=== PATIENT | female | born 1955 | race Caucasian/White ===

== ENCOUNTER 2020-07-31 06:42 | Day surgery (SDC) | payer BC ==
[2020-07-31] MEDS: Lactated Ringers 1,000 ML IV SCH ×3 (07:10→22:20)
[2020-07-31] MEDS ORDERED: fentaNYL 100 MCG/2 ML SDV ONE (07:11)
[2020-07-31] MEDS ORDERED: Midazolam 1 MG/ML 2 ML SDV ONE (07:11)
[2020-07-31] MEDS ORDERED: Propofol 200 MG/20 ML SDV ONE (07:11)
[2020-07-31] MEDS ORDERED: Rocuronium Bromide 50 MG/5 ML Syringe ONE (07:22)
[2020-07-31] MEDS ORDERED: Succinylcholine/Sod PF 100 MG/5 ML SYRINGE IV ONE (07:22)
--- NOTE | 2020-07-31 07:29 | PCM.PREANE ---
Preanesthetic Assessment - Anesthesia/Transfusion/Family Hx Anesthesia History: Prior Anesthesia Without Reaction Other Type of Anesthesia Reaction Comment: Denies any known problem in past Family History of Anesthesia Reaction: No Transfusion History: No Prior Transfusion(s) Intubation History: Unknown - Review of Systems General: No Symptoms Pulmonary: No Symptoms Cardiovascular: No Symptoms Gastrointestinal: No Symptoms Neurological: No Symptoms Other: Reports: None - Physical Assessment Vital Signs: Last Vital Signs Temp 36.0 C L 07/31/20 06:54 Pulse 93 07/31/20 06:54 Resp 15 07/31/20 06:54 BP 109/63 07/31/20 06:54 Pulse Ox 93 L 07/31/20 06:54 Height: 5 ft 3 in Weight: 62.596 kg ASA Class: 1 Mental Status: Alert & Oriented x3 Airway Class: Mallampati = 1 Dentition: Reports: Normal Dentition Thyro-Mental Finger Breadths: 3 Mouth Opening Finger Breadths: 3 ROM/Head Extension: Full Lungs: Clear to Auscultation, Normal Respiratory Effort Cardiovascular: Regular Rate, Regular Rhythm - Allergies Allergies/Adverse Reactions: Allergies Allergy/AdvReac Type Severity Reaction Status Date / Time venom-honey bee Allergy Anaphylactic Verified 04/06/15 14:50 [bee venom (honey bee)] Shock - Blood Blood Available: No - Anesthesia Plan Pre-Op Medication Ordered: None - Acknowledgements Anesthesia Type Planned: General Anesthesia Pt an Appropriate Candidate for the Planned Anesthesia: Yes Alternatives and Risks of Anesthesia Discussed w Pt/Guardian: Yes Pt/Guardian Understands and Agrees with Anesthesia Plan: Yes PreAnesthesia Questionnaire HEENT History: Reports: Other (See Below) Other HEENT History: wears glasses Cardiovascular History: Reports: None Respiratory History: Reports: None Gastrointestinal History: Reports: None Genitourinary History: Reports: None 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: , Other (See Below) Other OB/BYN History: cystocele with vault prolapse Musculoskeletal History: Reports: Fracture Other Musculoskeletal History: hx fx ankle Neurological History: Reports: None Psychiatric History: Reports: None Endocrine/Metabolic History: Reports: None Hematologic History: Reports: None Immunologic History: Reports: None Oncologic (Cancer) History: Reports: None Dermatologic History: Reports: None - Past Surgical History Head Surgeries/Procedures: Reports: None HEENT Surgical History: Reports: None Cardiovascular Surgical History: Reports: None Respiratory Surgical History: Reports: None GI Surgical History: Reports: Colonoscopy Female Surgical History: Reports: Hysterectomy Endocrine Surgical History: Reports: None Neurological Surgical History: Reports: C-Spine Other Neurological Surgeries/Procedures: anterior cervical diskectomy Musculoskeletal Surgical History: Reports: None Oncologic Surgical History: Reports: None Dermatological Surgical History: Reports: None - SUBSTANCE USE Tobacco Use Status *Q: Never Tobacco User - HOME MEDS Home Medications: Home Meds Ascorbic Acid [Vitamin C] 500 mg PO DAILY 04/05/15 [History] Calcium Carbonate/Vitamin D3 [Calcium 600 + D Tablet] 1 tab PO DAILY 04/05/15 [History] EPINEPHrine [Epipen] 1 injection SUBCUT ASDIRECTED PRN 04/05/15 [History] Multivitamin [One-A-Day Essential] 1 tab PO DAILY 04/05/15 [History] Rutin/Hesp/Bioflav/C/Ocylve095 [Bioflex] 1 tab PO DAILY 04/05/15 [History] S-Adenosylmethionine Sul Tosyl [Remy-E] 1 tab PO DAILY 04/05/15 [History] Calcium Carb, Citrate/Vit D3 [Citracal + D ER] 1 tab PO DAILY 07/26/20 [History] estradioL [Divigel] 1 applic TOP DAILY 07/26/20 [History] - CURRENT (IN HOUSE) MEDS Current Meds: Current Medications Lactated Ringer's (Ringers, Lactated) 1,000 mls @ 100 mls/hr IV ASDIRECTED CLIFF Last Admin: 07/31/20 07:10 Dose: 100 mls/hr Documented by: Discontinued Medications Fentanyl (Sublimaze) Confirm Administered Dose 100 mcg .ROUTE .STK-MED ONE Stop: 07/31/20 07:12 Lidocaine HCl (Xylocaine-Mpf 1%) Confirm Administered Dose 5 ml .ROUTE .STK-MED ONE Stop: 07/31/20 07:23 Midazolam HCl (Versed 1 Mg/Ml) Confirm Administered Dose 2 mg .ROUTE .STK-MED ONE Stop: 07/31/20 07:12 Propofol (Diprivan 20 Ml) Confirm Administered Dose 200 mg .ROUTE .STK-MED ONE Stop: 07/31/20 07:12 Rocuronium [place] (Rocuronium [place]) Confirm Administered Dose 50 mg .ROUTE .STK-MED ONE Stop: 07/31/20 07:23
[2020-07-31] MEDS ORDERED: Fluorescein 5 ML Vial ONE (07:34)
[2020-07-31] MEDS ORDERED: Bupivacaine 0.25% 10 ML SDV ONE (07:35)
[2020-07-31] MEDS ORDERED: Lidocaine 1% with EPINEPHrine 1:100,000 20 ML MDV ONE (07:35)
[2020-07-31] MEDS ORDERED: Octyl 2-Cyanoacrylate 1 Tube ONE (07:35)
[2020-07-31 07:50] LABS: BLOOD UREA NITROGEN,BUN 15 mg/dL (7.0-18.0); CARBON DIOXIDE,CO2 28.9 mmol/L (21.0-32.0); CHLORIDE,CL 106 mmol/L (98-107); GLUCOSE RANDOM 104 mg/dL (74-106); POTASSIUM,K 3.9 mmol/L (3.5-5.1); SODIUM,NA 142 mmol/L (136-145)
[2020-07-31] MEDS ORDERED: ceFAZolin 1 GM in Premix Bag 1 BAG IV ONE (07:52)
[2020-07-31] MEDS ORDERED: Ondansetron 4 MG/2 ML SDV ONE (08:31)
[2020-07-31] MEDS ORDERED: Dexamethasone 4 MG/ML 5 ML MDV ONE (08:31)
[2020-07-31] MEDS ORDERED: EPINEPHrine 1:10,000 1 MG/10 ML Syringe IVPUSH PRN (08:52)
[2020-07-31] MEDS ORDERED: fentaNYL 100 MCG/2 ML SDV IVPUSH PRN (08:52)
[2020-07-31] MEDS ORDERED: Naloxone 0.4 MG/ML Syringe IVPUSH PRN (08:52)
[2020-07-31] MEDS ORDERED: Albuterol 0.083% 2.5 MG/3 ML Neb Soln NEB PRN (08:52)
[2020-07-31] MEDS ORDERED: 50% Dextrose in Water 50 ML Syringe IVPUSH PRN (08:52)
[2020-07-31] MEDS ORDERED: Atropine 0.1 MG/ML 10 ML Syringe IVPUSH PRN ×2 (08:52)
[2020-07-31] MEDS ORDERED: HYDROmorphone 2 MG/ML Syringe IVPUSH PRN (08:52)
[2020-07-31] MEDS ORDERED: Ondansetron 4 MG/2 ML SDV IVPUSH PRN ×2 (08:53→10:37)
[2020-07-31] MEDS ORDERED: Glycopyrrolate 0.2 MG/ML SDV ONE (09:16)
[2020-07-31] MEDS ORDERED: Furosemide 40 MG/4 ML VIAL ONE (09:24)
--- NOTE | 2020-07-31 10:36 | PCM.OPNOTE ---
- General Post-Op/Procedure Note Date of Surgery/Procedure: 07/31/20 Operative Procedure(s): laparoscopic lysis of adhesions, bilateral salpingoophorectomy, pelvic washings, vaginal vault suspension, anterior and posterior colporrhaphy, perineorrhaphy, and cystoscopy Findings: 4th degree cystocele, vault prolapse, second degree rectocele. Adhesions of the bowel epiploica to the vaginal cuff. Normal appearing tubes and ovaries, normal cystometry with good flow from bilateral ureteral orifices, no trauma to the bladder mucosa. Pre Op Diagnosis: vaginal prolapse after hysterectomy, cystocele, family histoiry of ovarian cancer. Post-Op Diagnosis: Same Anesthesia Technique: General ET Tube Primary Surgeon: Alia Malik Secondary Surgeon: Hollie Chavez Anesthesia Provider: Mariajose Gonzales Die Finisher: Clay Pang Pathology: pelvic washings, bilateral tubes and ovaries, vaginal mucosa. Fluid Replacement, Intraop: 1,600 Output, Urine Amount: 400 EBL in mLs: 50 Complications: None Known Condition: Good Free Text/Narrative:: Intake & Output 07/30/20 07/31/20 07/31/20 22:59 06:59 14:59 Output Total 100 Balance -100
[2020-07-31] MEDS ORDERED: Promethazine 25 MG/ML SDV IM PRN (10:37)
[2020-07-31] MEDS ORDERED: Acetaminophen/oxyCODONE 325-5 MG Tab PO PRN (10:37)
[2020-07-31] MEDS ORDERED: Ketorolac 30 MG/ML SDV IVPUSH ONE (10:37)
[2020-07-31] MEDS ORDERED: Morphine 4 MG/ML Syringe IVPUSH PRN (10:37)
--- NOTE | 2020-07-31 12:15 | OR ---
SURGEON: Alia Malik M.D. DATE OF PROCEDURE: 07/31/2020 PREOPERATIVE DIAGNOSES: Vaginal vault prolapse after hysterectomy, cystocele, rectocele, and family history of ovarian cancer. POSTOPERATIVE DIAGNOSES: Vaginal vault prolapse after hysterectomy, cystocele, rectocele, and family history of ovarian cancer and pelvic adhesions. PROCEDURES: Laparoscopic lysis of adhesions, bilateral salpingo-oophorectomy, vaginal vault suspension to the uterosacral ligaments, anterior-posterior colporrhaphy, perineorrhaphy, and cystoscopy. PRIMARY SURGEON: Alia Malik MD RIVET STICKER: Hollie Chavez MD ANESTHESIA: General endotracheal. FLUIDS: 1600 mL crystalloid. ESTIMATED BLOOD LOSS: 50 mL. URINE OUTPUT: 400 mL. FINDINGS: Bowel epiploica adherent to the vaginal apex found laparoscopically. Bilateral tubes and ovaries appeared normal with a small cyst on the right ovary. The pelvis otherwise appeared normal. The bladder was extremely redundant. Upon vaginal examination, the vaginal vault was completely detached from the uterosacral ligaments. There was a third-degree cystocele, which descended beyond the introitus due to the vault prolapse, second-degree rectocele. On cystoscopy, there was copious flow of bright green urine after giving IV fluorescein and Lasix and there was no evidence of any trauma to the bladder mucosa prior to the vault suspension and following the vault suspension. COMPLICATIONS: None known. DISPOSITION: Stable to Recovery. BRIEF HISTORY: This is a 65-year-old female. She presents having had a prior hysterectomy and anterior colporrhaphy with difficulty emptying bladder, feeling a bulge at her vagina, and pelvic pressure. Examination revealed a [id number] degree cystocele, vault prolapse, and second-degree rectocele and additionally, they were unable to remove her ovaries at the time of prior vaginal hysterectomy and her mother has a history of ovarian cancer at the age of 70 and she desires bilateral salpingo-oophorectomy. She is therefore consented for a laparoscopic bilateral salpingo-oophorectomy with pelvic washings and vaginal vault suspension to the uterosacral ligaments with anterior-posterior colporrhaphy, perineorrhaphy, and cystoscopy with risks discussed including bleeding; infection; injury to bowel, bladder, blood vessels, ureters, or other organs; risk of thromboembolic event; risk of anesthesia; risk of recurrence of approximately 30%; or risk of dyspareunia or sexual dysfunction were also discussed. Understanding all these risks, she does desire to proceed. DESCRIPTION OF PROCEDURE: With the patient in dorsal lithotomy position, under adequate general endotracheal anesthesia, the perineum was prepped with Betadine. The abdomen was prepped with chlorhexidine and draped in usual fashion for a laparoscopically assisted vaginal surgery. The time-out was held. The Kaye had been placed. SCDs were in place. She had received 2 g of Ancef IV. A sponge stick was placed into the vagina to manipulate the vaginal apex from below while performing the laparoscopic surgery. Attention was then turned above after ditto machine operator's gloves were changed, and 3 mL of 0.25% Marcaine was injected inferior to the umbilicus. A vertical 5 mm incision was made with a scalpel. The anterior abdominal wall was elevated. Veress needle was inserted. Opening pressure was 3 mmHg. CO2 was insufflated to develop an adequate pneumoperitoneum. A 5 mm port was placed at the umbilical site. The laparoscope was placed into the abdominal cavity. There was no evidence of any trauma from the port placement site. Two additional ports were placed under direct visualization, 2 cm medial and cephalad from the anterior superior iliac spine on the right and the left. The patient was placed in Trendelenburg position, and the ovaries could not be identified due to dense adhesions along the vaginal cuff. This was carefully inspected, and it was determined to be bowel epiploica, which could safely be lysed, and using the LigaSure, the bowel epiploica was released from the vaginal cuff. With this, I was then able to easily identify the ureters bilaterally, which were well below the field of dissection. The left tube was grasped, elevated as well as the ovary and the infundibulopelvic ligament was doubly cauterized, cut with the LigaSure, proceeding proximally along the tube to the position near the vaginal apex, and was transected. This was repeated on the opposite side. They were placed in the anterior cul-de-sac. Prior to proceeding with the bilateral salpingo- oophorectomy, the pelvis was copiously irrigated with normal saline, and this was collected for washings. This being completed, Dr. Chavez continued to proceed under laparoscopic guidance while I proceeded vaginally. A weighted speculum was placed posteriorly. The vaginal apices were marked with 2-0 Vicryl bilaterally. The anterior vaginal wall was grasped with an Allis clamp approximately 1 cm cephalad from the urethral meatus. Hydrodissection was performed. The cystocele was identified to the upper apex, and the vaginal mucosa was incised. The muscularis layer was from the overlying vaginal mucosa. The muscularis layer was then reapproximated in the midline using multiple interrupted sutures of 2-0 Vicryl, and this anterior cystocele did not reach the enterocele at the apex, and therefore, the vaginal incision was slightly trimmed and closed with a running locked suture of 0 Polysorb. A triangular incision was then made in the perineum using a scalpel. The skin was removed using Metzenbaum scissors. Hydrodissection was performed across the posterior vagina, and the midline incision was made in the vaginal mucosa. Muscularis layer was from the underlying vaginal mucosa. There was a clear delineation at the upper level of the muscularis layer that had from the vaginal support, and just above this, I was able to enter the peritoneal cavity under direct visualization from the laparoscope. This being completed, I was then able to remove the tubes and ovaries vaginally. A sponge was placed to avoid loss of the pneumoperitoneum, and this was removed at the end of the case as noted. The bowel was then packed. The apices of the vaginal cuff were grasped with Conrado clamps bilaterally. The uterosacral ligaments were palpated. Three sutures of 2-0 Ethibond were placed into the uterosacral ligaments on each side, and a single tie was placed. Following placement of the sutures, the Kaye bulb was reduced, and the Kaye catheter was removed. Cystoscopy was performed after IV fluorescein had been given as well as Lasix, and there was copious flow of green urine from bilateral ureteral orifices with and without tension on the uterosacral ligaments on the ipsilateral side. There was also no evidence of any trauma to the bladder mucosa. This being completed, the clearly delineated upper portion of the vaginal muscularis was attached to one arm of each of the 6 sutures and anteriorly, the upper cuff could be identified dissecting beneath the posterior vaginal mucosa, and there was good tissue there, which allowed the vaginal apex to be reattached to the uterosacral ligaments using the opposite arm. These 6 sutures were then tied and trimmed. Due to the placement of the anterior arm of each of these, I did repeat cystoscopy to confirm that there was no trauma and no suture placement within the bladder mucosa, and the cystoscopy was also normal. The bladder had been removed and was again replaced. The muscularis layer of the posterior wall of the vagina was then reapproximated in the midline using a multiple mattress sutures of 2-0 Vicryl. The vaginal mucosa was not trimmed as the primary defect was a transverse defect, and the vaginal mucosa was reapproximated using running locked suture of 0 Vicryl, carrying down to the perineum where the triangular incision of the perineum was reapproximated in the midline to increase the length of the perineum. A 3-0 Monocryl was then utilized in a running subcuticular fashion to reapproximate the skin of the perineum. At this point, we noted that sponge count was off by one. Laparoscopy was performed, and it was noted that the sponge that had been used to prevent loss of the pneumoperitoneum was in the peritoneal cavity and was removed through one of the laparoscopic ports without any difficulty. The pelvis was hemostatic. Laparoscopic ports were removed, and the skin was closed with subcuticular suture of 3-0 Monocryl. The vagina was packed with vaginal packing instilled with water-based lubricant. Final sponge, needle, and instrument counts were reported as correct. There were no known complications. The patient was transferred to Recovery in good condition. [employer] /[id number]
--- NOTE | 2020-07-31 12:20 | PCM.POSTAN ---
POST ANESTHESIA ASSESSMENT - MENTAL STATUS Mental Status: Alert, Oriented - VITAL SIGNS Vital Signs: Last Vital Signs Temp 36.1 C 07/31/20 12:17 Pulse 67 07/31/20 12:17 Resp 16 07/31/20 12:17 BP 97/49 L 07/31/20 12:17 Pulse Ox 97 07/31/20 12:17 - RESPIRATORY Respiratory Status: Respiratory Rate WNL, Airway Patent, O2 Saturation Stable - CARDIOVASCULAR CV Status: Pulse Rate WNL, Blood Pressure Stable - GASTROINTESTINAL GI Status: No Symptoms - PAIN Pain Score: 5 - POST OP HYDRATION Hydration Status: Adequate & Stable - OBSERVATIONS Free Text/Narrative:: No anesthesia problems
[2020-07-31] MEDS: Acetaminophen/oxyCODONE 325-5 MG Tab PO PRN ×2 (13:47→20:40)
[2020-07-31] MEDS ORDERED: Ketorolac 30 MG/ML SDV IVPUSH PRN (16:30)
[2020-08-01] MEDS: Acetaminophen/oxyCODONE 325-5 MG Tab PO PRN (04:25)
[2020-08-01 06:17] LABS: BLOOD UREA NITROGEN,BUN 12 mg/dL (7.0-18.0); CARBON DIOXIDE,CO2 27.3 mmol/L (21.0-32.0); CHLORIDE,CL 105 mmol/L (98-107); GLUCOSE RANDOM 106 mg/dL (74-106); POTASSIUM,K 4.2 mmol/L (3.5-5.1); SODIUM,NA 139 mmol/L (136-145)
[2020-08-01 07:10] VITALS: BP 119/70; PULSE 69
--- NOTE | 2020-08-01 08:00 | PCM48HPAN ---
Post Anesthesia Note - EVALUATION WITHIN 48HRS OF ANESTHETIC Vital Signs in Normal Range: Yes Patient Participated in Evaluation: Yes Respiratory Function Stable: Yes Airway Patent: Yes Cardiovascular Function Stable: Yes Hydration Status Stable: Yes Pain Control Satisfactory: Yes (Reports pain 2/10) Nausea and Vomiting Control Satisfactory: Yes (Denies nausea, taking PO well) Mental Status Recovered: Yes Vital Signs: Last Vital Signs Temp 36.8 C 08/01/20 07:09 Pulse 69 08/01/20 07:09 Resp 16 08/01/20 07:09 BP 119/70 08/01/20 07:09 Pulse Ox 94 L 08/01/20 07:09 - COMMENTS/OBSERVATIONS Free Text/Narrative:: Ambulated to a chair, feeling generally well.
--- NOTE | 2020-08-01 08:39 | PCM.SURGPN ---
- General Info Date of Service: 08/01/20 Date of Surgery/Procedure: 07/31/20 POD#: 1 Functional Status: Reports: Pain Controlled, Tolerating Diet, Ambulating, Urinating - Review of Systems General: Reports: No Symptoms HEENT: Reports: No Symptoms Pulmonary: Reports: No Symptoms Cardiovascular: Reports: No Symptoms Gastrointestinal: Reports: No Symptoms Genitourinary: Reports: No Symptoms Musculoskeletal: Reports: No Symptoms Skin: Reports: No Symptoms Neurological: Reports: No Symptoms Psychiatric: Reports: No Symptoms - Patient Data Vitals - Most Recent: Last Vital Signs Temp 36.8 C 08/01/20 07:09 Pulse 69 08/01/20 07:09 Resp 16 08/01/20 07:09 BP 119/70 08/01/20 07:09 Pulse Ox 94 L 08/01/20 07:09 Weight - Most Recent: 62.596 kg I&O - Last 24 Hours: Intake & Output 07/31/20 08/01/20 08/01/20 22:59 06:59 14:59 Intake Total 363 2088 Output Total 175 2275 Balance 188 -187 Lab Results Last 24 Hrs: Laboratory Results - last 24 hr 08/01/20 08/01/20 Range/Units 05:25 05:25 WBC 17.12 H (4.0-11.0) K/uL RBC 3.85 L (4.30-5.90) M/uL Hgb 11.7 L (12.0-16.0) g/dL Hct 35.3 L (36.0-46.0) % MCV 91.7 (80.0-98.0) fL MCH 30.4 (27.0-32.0) pg MCHC 33.1 (31.0-37.0) g/dL RDW Std Deviation 44.3 (28.0-62.0) fl RDW Coeff of Nas 13 (11.0-15.0) % Plt Count 299 (150-400) K/uL MPV 10.80 (7.40-12.00) fL Neut % (Auto) 82.8 H (48.0-80.0) % Lymph % (Auto) 10.2 L (16.0-40.0) % [place] % (Auto) 7.0 (0.0-15.0) % Eos % (Auto) 0.0 (0.0-7.0) % Baso % (Auto) 0.0 (0.0-1.5) % Neut # (Auto) 14.2 H (1.4-5.7) K/uL Lymph # (Auto) 1.7 (0.6-2.4) K/uL [place] # (Auto) 1.2 H (0.0-0.8) K/uL Eos # (Auto) 0.0 (0.0-0.7) K/uL Baso # (Auto) 0.0 (0.0-0.1) K/uL Nucleated RBC % 0.0 /100WBC Nucleated RBCs # 0 K/uL Sodium 139 (136-145) mmol/L Potassium 4.2 (3.5-5.1) mmol/L Chloride 105 (98-107) mmol/L Carbon Dioxide 27.3 (21.0-32.0) mmol/L BUN 12 (7.0-18.0) mg/dL Creatinine 0.7 (0.6-1.0) mg/dL Est Cr Clr Drug Dosing 67.16 mL/min Estimated GFR (MDRD) > 60.0 ml/min Glucose 106 (74-106) mg/dL Calcium 8.4 L (8.5-10.1) mg/dL Med Orders - Current: Current Medications Lactated Ringer's (Ringers, Lactated) 1,000 mls @ 100 mls/hr IV ASDIRECTED [facility] Last Admin: 07/31/20 22:20 Dose: 100 mls/hr Documented by: Ketorolac Tromethamine (Toradol) 30 mg IVPUSH Q6H PRN PRN Reason: Pain (severe 7-10) Stop: 08/05/20 16:31 Morphine Sulfate (Morphine) 4 mg IVPUSH Q2H PRN PRN Reason: Pain (severe 7-10) Ondansetron HCl (Zofran) 4 mg IVPUSH Q6H PRN PRN Reason: Nausea/Vomiting Oxycodone/Acetaminophen (Percocet 325-5 Mg) 1 tab PO Q4H PRN PRN Reason: Pain (moderate 4-6) Last Admin: 08/01/20 04:25 Dose: 1 tab Documented by: Oxycodone/Acetaminophen (Percocet 325-5 Mg) 2 tab PO Q4H PRN PRN Reason: Pain (moderate 4-6) Promethazine HCl (Phenergan) 25 mg IM Q6H PRN PRN Reason: Nausea/Vomiting Discontinued Medications Albuterol (Proventil Neb Soln) 2.5 mg NEB ONETIME PRN PRN Reason: Wheezing Atropine Sulfate (Atropine 0.1 Mg/Ml) 0.5 mg IVPUSH ASDIRECTED PRN PRN Reason: Hypo-perfusion Atropine Sulfate (Atropine 0.1 Mg/Ml) 1 mg IVPUSH ASDIRECTED PRN PRN Reason: Hypo-Perfusion Bupivacaine HCl (Sensorcaine-Mpf 0.25%) Confirm Administered Dose 20 ml .ROUTE .STK-MED ONE Stop: 07/31/20 07:36 Dexamethasone (Dexamethasone) Confirm Administered Dose 20 mg .ROUTE .STK-MED ONE Stop: 07/31/20 08:32 Dextrose/Water (Dextrose 50% In Water) 50 ml IVPUSH ASDIRECTED PRN PRN Reason: Hypoglycemia Epinephrine HCl (Epinephrine 1:10,000) 1 mg IVPUSH ASDIRECTED PRN PRN Reason: ACLS Guidelines Fentanyl (Sublimaze) Confirm Administered Dose 100 mcg .ROUTE .STK-MED ONE Stop: 07/31/20 07:12 Fentanyl (Sublimaze) 50 mcg IVPUSH Q5M PRN PRN Reason: Pain Last Admin: 07/31/20 11:04 Dose: 50 mcg Documented by: Fluorescein Sodium (Ak-Fluor) Confirm Administered Dose 5 ml .ROUTE .STK-MED ONE Stop: 07/31/20 07:35 Furosemide (Lasix) Confirm Administered Dose 40 mg .ROUTE .STK-MED ONE Stop: 07/31/20 09:25 Glycopyrrolate (Robinul) Confirm Administered Dose 0.6 mg .ROUTE .STK-MED ONE Stop: 07/31/20 09:17 Hydromorphone HCl (Dilaudid) 0.5 mg IVPUSH .Q5MIN PRN PRN Reason: Pain (severe 7-10) Stop: 08/01/20 08:52 Acetaminophen (Ofirmev 1000 Mg/100 Ml) Confirm Administered Dose 100 mls @ as directed .ROUTE .STK-MED ONE Stop: 07/31/20 07:36 Cefazolin Sodium/Dextrose 1 gm (/ Premix) 50 mls @ 100 mls/hr IV ONETIME ONE Stop: 07/31/20 08:21 Last Admin: 07/31/20 08:14 Dose: 100 mls/hr Documented by: Cefazolin Sodium/Dextrose (Ancef 1 Gm/50 Ml) Confirm Administered Dose 50 mls @ as directed .ROUTE .STK-MED ONE Stop: 07/31/20 08:10 Ketorolac Tromethamine (Toradol) 30 mg IVPUSH ONETIME ONE Stop: 07/31/20 10:38 Last Admin: 07/31/20 10:57 Dose: 30 mg Documented by: Lidocaine HCl (Xylocaine-Mpf 1%) Confirm Administered Dose 5 ml .ROUTE .STK-MED ONE Stop: 07/31/20 07:23 Lidocaine/Epinephrine (Xylocaine 1% With Epinephrine 1:100,000) Confirm Administered Dose 20 ml .ROUTE .STK-MED ONE Stop: 07/31/20 07:36 Midazolam HCl (Versed 1 Mg/Ml) Confirm Administered Dose 2 mg .ROUTE .STK-MED ONE Stop: 07/31/20 07:12 Naloxone HCl (Narcan) 0.1 mg IVPUSH ASDIRECTED PRN PRN Reason: Respiratory Depression Octyl Cyanoacrylate (Dermabond Advance) Confirm Administered Dose 1 applic .ROUTE .STK-MED ONE Stop: 07/31/20 07:36 Ondansetron HCl (Zofran) Confirm Administered Dose 4 mg .ROUTE .STK-MED ONE Stop: 07/31/20 08:32 Ondansetron HCl (Zofran) 4 mg IVPUSH ONETIME PRN PRN Reason: Nausea/Vomiting Propofol (Diprivan 20 Ml) Confirm Administered Dose 200 mg .ROUTE .STK-MED ONE Stop: 07/31/20 07:12 Rocuronium [place] (Rocuronium [place]) Confirm Administered Dose 50 mg .ROUTE .STK-MED ONE Stop: 07/31/20 07:23 - Exam General: Alert, Oriented Lungs: Normal Respiratory Effort Extremities: Non-Tender, No Pedal Edema Psy/Mental Status: Alert, Normal Affect, Normal Mood Sepsis Event Note - Evaluation Sepsis Screening Result: No Definite Risk - Focused Exam Vital Signs: Vital Signs Temp Pulse Resp BP Pulse Ox 08/01/20 07:09 36.8 C 69 16 119/70 94 L 08/01/20 03:42 36.7 C 75 16 109/54 L 96 08/01/20 00:30 36.4 C 71 15 94/54 L 95 - Problem List & Annotations (1) Prolapse of vaginal vault after hysterectomy SNOMED Code(s): 35818471 Code(s): N99.3 - PROLAPSE OF VAGINAL VAULT AFTER HYSTERECTOMY Status: Acute Current Visit: Yes (2) Family history of ovarian cancer SNOMED Code(s): 329344795 Code(s): Z80.41 - FAMILY HISTORY OF MALIGNANT NEOPLASM OF OVARY Status: Acute Current Visit: Yes - Problem List Review Problem List Initiated/Reviewed/Updated: Yes - My Orders Last 24 Hours: Active Orders 24 hr Category Date Time Status Patient Status [ADT] Routine ADT 07/31/20 10:37 Active Antiembolic Devices [RC] PER UNIT ROUTINE Care 07/31/20 10:38 Active Notify Provider Intake and Out [RC] ASDIRECTED Care 07/31/20 10:37 Active Notify Provider Vital Signs [RC] ASDIRECTED Care 07/31/20 10:37 Active Oxygen Therapy [RC] ASDIRECTED Care 07/31/20 10:37 Active RT Incentive Spirometry [RC] Q2HWA Care 07/31/20 10:37 Active Ready for Discharge [RC] PER UNIT ROUTINE Care 08/01/20 08:25 Active Up With Assistance [RC] PER UNIT ROUTINE Care 07/31/20 10:37 Active Up ad Frida [RC] PER UNIT ROUTINE Care 07/31/20 10:37 Active Urinary Catheter Removal [RC] Per Unit Routine Care 07/31/20 10:37 Active Vital Signs [RC] Q4H Care 07/31/20 10:37 Active Regular Diet [DIET] Diet 07/31/20 Dinner Active Acetaminophen/oxyCODONE [Percocet 325-5 MG] Med 07/31/20 10:37 Active 1 tab PO Q4H PRN Acetaminophen/oxyCODONE [Percocet 325-5 MG] Med 07/31/20 10:37 Active 2 tab PO Q4H PRN Ketorolac [Toradol] Med 07/31/20 16:30 Active 30 mg IVPUSH Q6H PRN Morphine Med 07/31/20 10:37 Active 4 mg IVPUSH Q2H PRN Ondansetron [Zofran] Med 07/31/20 10:37 Active 4 mg IVPUSH Q6H PRN Promethazine [Phenergan] Med 07/31/20 10:37 Active 25 mg IM Q6H PRN Peripheral IV Discontinue [OM.PC] Routine Oth 07/31/20 10:37 Ordered Sequential Compression Device [OM.PC] Per Unit Routine Oth 07/31/20 10:37 Ordered Resuscitation Status Routine Resus Stat 07/31/20 10:37 Ordered Medication Orders Lactated Ringer's (Ringers, Lactated) 1,000 mls @ 100 mls/hr IV ASDIRECTED [facility] Last Admin: 07/31/20 22:20 Dose: 100 mls/hr Documented by: Infusion: 07/31/20 22:16 Dose: 100 mls/hr Documented by: Admin: 07/31/20 12:16 Dose: 100 mls/hr Documented by: Infusion: 07/31/20 12:16 Dose: 100 mls/hr Documented by: Admin: 07/31/20 07:10 Dose: 100 mls/hr Documented by: NELSON Ketorolac Tromethamine (Toradol) 30 mg IVPUSH Q6H PRN PRN Reason: Pain (severe 7-10) Stop: 08/05/20 16:31 Morphine Sulfate (Morphine) 4 mg IVPUSH Q2H PRN PRN Reason: Pain (severe 7-10) Ondansetron HCl (Zofran) 4 mg IVPUSH Q6H PRN PRN Reason: Nausea/Vomiting Oxycodone/Acetaminophen (Percocet 325-5 Mg) 1 tab PO Q4H PRN PRN Reason: Pain (moderate 4-6) Last Admin: 08/01/20 04:25 Dose: 1 tab Documented by: Admin: 07/31/20 20:40 Dose: 1 tab Documented by: Admin: 07/31/20 13:47 Dose: 1 tab Documented by: TELMA Oxycodone/Acetaminophen (Percocet 325-5 Mg) 2 tab PO Q4H PRN PRN Reason: Pain (moderate 4-6) Promethazine HCl (Phenergan) 25 mg IM Q6H PRN PRN Reason: Nausea/Vomiting - Assessment Assessment (Free Text/Narrative):: POD #1 after laparoscopic bilateral salpingoophorectomy, vaginal vault suspension, with anterior and posterior colporrhaphy. Tolerating diet, ambulating has urinated - Plan Plan (Free Text/Narrative):: Discharge instructions reviewed, dismiss to home today.
== END 2020-08-01 10:10 | disposition home or self-care (01) ==
LOC: MW.SDS 06:42 → MW.MS 10:53 → MW.SDS 08-01 10:10
PROVIDERS: ATTEND Obstetrics & Gynecology
DX: N99.3 Prolapse of vaginal vault after hysterectomy (principal); K66.0 Peritoneal adhesions (postprocedural) (postinfection); N83.8 Other noninflammatory disorders of ovary, fallopian tube and broad ligament; N95.1 Menopausal and female climacteric states; Z80.41 Family history of malignant neoplasm of ovary; Z90.710 Acquired absence of both cervix and uterus; Z79.899 Other long term (current) drug therapy; Z91.030 Bee allergy status; Z98.890 Other specified postprocedural states
CPT/HCPCS: 36415; 57260; 57425; 58661; 80048; 85025; 85027; 86850; 86900; 86901; 88104; 88305; A9270; J0131; J0330; J0690; J1100; J1885; J1940; J2250; J2704; J3010; J3490; J7120; 00840; J2405